=== PATIENT | male | born 1990 | race Caucasian/White ===

== ENCOUNTER 2022-12-17 09:57 | Outpatient (CLI) | payer OTHER, SELFPAY ==
[2022-12-17 10:15] LABS: Basophils Absolute Auto 0.1 K/mm3 (0.0-0.1); Basophils Percent Auto 1.1 % (0.2-1.2); Eosinophils Absolute Auto 0.1 K/mm3 (0-0.3); Eosinophils Percent Auto 0.8 % (0-4.4); Hematocrit 48.9 % (42.0-52.0); Hemoglobin 16.5 g/dL (14.0-18.0); Immature Granulocyte Absolute 0.17 K/mm3 (0.00-0.031); Immature Granulocyte Percent A 2.1 % (0-0.5); Lymphocytes Absolute Auto 1.31 K/mm3 (0.9-3.2); Lymphocytes Percent Auto 15.8 % (18.3-44.2); Mean Corpuscular HGB Conc 33.7 g/dl (32-36); Mean Corpuscular Hemoglobin 30.3 pg (26-34); Mean Corpuscular Volume 89.9 fl (80-100); Monocytes Absolute Auto 0.9 K/mm3 (0.1-0.6); Monocytes Percent Auto 10.4 % (2.6-8.5); Neutrophils Absolute Auto 5.8 K/mm3 (1.3-6.7); Neutrophils Percent Auto 69.8 % (45.5-73.1); Platelet Count Result 315 k/mm3 (150-375); Red Blood Count 5.44 M/mm3 (4.6-6.20); Red Cell Distribution Width 12.2 % (11.5-14.5); White Blood Count 8.3 K/mm3 (4.5-10.0)
[2022-12-17 12:30] LABS: Anion Gap 9 mmol/L (8-16); Blood Urea Nitrogen 15 mg/dL (9-20); Carbon Dioxide 29 mmol/L (22-30); Chloride 100 mmol/L (98-107); Potassium 4.3 mmol/L (3.4-5.0); Sodium 138 mmol/L (137-145)
[2022-12-17 12:31] LABS: Alanine Aminotransferase 42 U/L (6-50); Albumin Level 4.8 g/dL (3.5-5.1); Alkaline Phosphatase 75 U/L (38-126); Aspartate Amino Transferase 36 U/L (17-59); Bilirubin,Total 0.7 mg/dL (0.2-1.3); CRP < 0.5 mg/dL (<1.0); Estimated Glomerular Filt Rate > 60; Glucose 96 mg/dL (65-110)
[2022-12-17 15:11] LABS: Erythrocyte Sedimentation Rate 1 mm/hr (0-20)
== END 2022-12-17 09:58 | disposition home or self-care (01) ==
LOC: ANHLAB 09:58
PROVIDERS: PCP Internal Medicine; Visit Provider Internal Medicine Hematology & Oncology
DX: D72.829 Elevated white blood cell count, unspecified (principal)
CPT/HCPCS: 36415; 80053; 85025; 85652; 86140

== ENCOUNTER 2022-12-19 12:39 | Outpatient (CLI) | payer OTHER, SELFPAY ==
[2022-12-25 15:05] LABS: BCR/abl Prior Result Not Given
[2022-12-25 15:51] LABS: BCR/abl P190 Not Detected; BCR/abl P190 Chg YES; BCR/abl P210 Not Detected; BCR/abl P210 Chg YES
== END 2022-12-19 12:40 | disposition home or self-care (01) ==
LOC: ANHLAB 12:41
PROVIDERS: PCP Internal Medicine; Visit Provider Internal Medicine Hematology & Oncology
DX: D72.829 Elevated white blood cell count, unspecified (principal)
CPT/HCPCS: 36415; 81206; 81207; 88184

== ENCOUNTER 2022-12-26 08:30 | Outpatient (RCR) | payer OTHER, SELFPAY ==
--- NOTE | 2022-12-24 18:48 | WPDONCPN ---
Progress Note: A/P (1) Leukocytosis, unspecified Code(s): D72.829 - Elevated white blood cell count, unspecified Status: Acute Assessment and plan: Patient with elevation in myelocyte. CBC was repeated on 12/17/22 which showed WBC of 8.3K with increase in immature granulocyte and monocytes. Flow cytometry done 12/19/22 showed left shipt in neutrophils but otherwise no immunophenotypic abnormalities. Pathologist review of peripheral smear showed few dysplastic neutrophils with hypolobated nuclei. No blast were seen. Hemoglobin is normal at 16.5g/dL and platelets were 315K. BCR-ABL is pending. We will call patient with results. If BCR-ABL negative, we will clear patient for employment. - Time Spent With Patient Total time spent is greater than 50% in coordination of care (as documented) at patient's floor/unit and/or counseling patient: 25 - 35 minutes Subjective Interval history: Reason for visit: follow up of elevated myelocyte HPI- Wade Sampson is a 32 y/o male who has seen Dr. Esteves as new patient on 12/17/22 for Leukocytosis with elevated myelocytes. This was discovered during employment physical with CBC done 11/28/22 which showed elevated monocytes. Patient denied any preceding illness. Further work up was ordered. patient is here in clinic for follow up of labs. Review of Systems - Review of Systems Patient states that he feels well without any infection or pains. He denies fever, chills, night sweats or weight loss. he works out intensely. He denies dizziness, headache, syncope, or falls. Denies chest pain, dyspnea, cough or hemoptysis. Denies vision changes including blurry or double vision. Denies abdominal pain, nausea, vomiting or diarrhea. No hematochezia or melena. no hematuria. No dysuria. No seasonal allergies. Exam - Constitutional no acute distress - Routine HEENT Exam Head: Present: atraumatic, normal inspection Eye: Present: EOMI, normal appearance, PERRL ENT: Present: mucous membranes moist, nares patent - Routine Neck Exam Present: full ROM - Routine Respiratory Exam Present: CTAB - Routine Cardiovascular Exam Cardiovascular: Present: RRR, S1, S2 - Routine Abdominal Exam Present: normal bowel sounds - Routine Extremities Exam Present: full ROM - Routine Back/Spine/Pelvis Exam Back/Spine: Present: full ROM
--- NOTE | 2022-12-26 14:31 | WPDONCPN ---
Progress Note: A/P (1) Leukocytosis, unspecified Code(s): D72.829 - Elevated white blood cell count, unspecified Status: Acute Assessment and plan: This is a telephone visit. I called patient and confirmed the right patient by full name, MEENA Patient first saw Dr. Esteves as new patient on 12/17/22 for Leukocytosis with elevated myelocytes. This was discovered during employment physical with CBC done 11/28/22 which showed elevated monocytes. Patient denied any preceding illness. Patient saw me in clinic on 12/24/22 and BCR ABL was pending. Now we have the results and I called the patient for conveying the results- BCR-ABL mutation is not detected. I cleared the patient for employment by faxing letter to his employer. - Time Spent With Patient Total time spent is greater than 50% in coordination of care (as documented) at patient's floor/unit and/or counseling patient: less than 15 minutes Subjective Interval history: Reason for visit: follow up of elevated myelocyte and BCR-ABL results HPI- This is a telephone visit. I called patient and confirmed the right patient by full jesus, MEENA Wade Sampson is a 32 y/o male who has seen Dr. Esteves as new patient on 12/17/22 for Leukocytosis with elevated myelocytes. This was discovered during employment physical with CBC done 11/28/22 which showed elevated monocytes. Patient denied any preceding illness. Patient saw me in clinic on 12/24/22 and BCR ABL was pending. Now we have the results and I called the patient for conveying the results- BCR-ABL mutation is not detected. Review of Systems - Review of Systems Patient feels well and has no change in ROS from yesterday. Exam - Constitutional no acute distress - Routine HEENT Exam Head: Present: atraumatic, normal inspection - Routine Neck Exam Present: full ROM - Routine Respiratory Exam Present: CTAB - Routine Cardiovascular Exam Cardiovascular: Present: RRR, S1, S2 - Routine Abdominal Exam Present: normal bowel sounds - Routine Extremities Exam Present: full ROM - Routine Back/Spine/Pelvis Exam Back/Spine: Present: full ROM
== END 2022-12-31 10:13 ==
LOC: AMCINF 08:30
PROVIDERS: PCP Internal Medicine; Visit Provider Internal Medicine
DX: D72.829 Elevated white blood cell count, unspecified (principal)
CPT/HCPCS: 99199